=== PATIENT | female | born 2000 | race Caucasian/White ===

== ENCOUNTER 2019-09-17 03:44 | Emergency (ER) | payer OTHER ==
[~2019-09-17] VITALS: Ht 154.9 cm; Wt 45.6 kg
--- NOTE | 2019-09-17 04:05 | ED Integumentary General ---
General Stated Complaint: NAUSEA,POSS ABSCESS ON RT SIDE OF CHIN,POSS FEVER Source: patient, other Exam Limitations: no limitations History of Present Illness Date Seen by Provider: Sep 17, 2019 Time Seen by Provider: 03:45 Initial Comments Patient presents to ER by private conveyance with chief complaint last 3 days she's had a pimple on her right lower chin that she popped and is now becoming more swollen and involved and has a nodule under her mentum. She's felt some subjective chills but does not own a thermometer. She has some mild nausea but no vomiting. She is on oral control. She had a gram of Tylenol about an hour before coming in. Allergies and Home Medications Patient Home Medication List Home Medication List Reviewed: Yes Review of Systems Review of Systems Constitutional: chills; No fever EENTM: No ear discharge, No ear pain Respiratory: No cough, No short of breath Cardiovascular: No chest pain, No edema Gastrointestinal: No abdominal pain, No constipation; nausea; No vomiting Genitourinary: No discharge, No dysuria Musculoskeletal: No back pain, No joint pain Past Wbqcotw-Bspzuo-Htzfuk Hx Patient Social History Alcohol Use: Denies Use Recreational Drug Use: No Smoking Status: Never a Smoker Recent Foreign Travel: No Contact w/Someone Who Travel: No Physical Exam Vital Signs Capillary Refill : General Appearance: WD/WN, no apparent distress HEENT: PERRL/EOMI, pharynx normal, other (right mentum erythematous slightly indurated area of pointing but no fluctuance approximately 2 cm diameter erythema and 1 cm diameter induration) Neck: full range of motion, supple, lymphadenopathy (R) (solitary one half centimeter wide nodule consistent with lymph node submental) Cardiovascular: normal peripheral pulses, regular rate, rhythm Respiratory: no respiratory distress, no accessory muscle use Progress/Results/Core Measures Progress Progress Note : Time: 04:03 Progress Note Discussed risks, benefits and alternatives of an I&D versus just antibiotics and compresses and using the shared decision making model the patient elected to attempt conservative therapy this time. Departure Impression Primary Impression: Cellulitis and abscess of face Additional Impression: Lymphadenopathy, anterior cervical Disposition: 01 HOME, SELF-CARE Condition: Stable Departure-Patient Inst. Decision time for Depature: 04:04 Referrals: NO,LOCAL PHYSICIAN (PCP/Family) Primary Care Physician Patient Instructions: Skin Abscess Add. Discharge Instructions: Start the Bactrim one tablet twice a day with food. Warm compresses applied over the affected skin every 2-4 hours as needed. Keep the skin clean with regular soap and water. Avoid makeup. 1 g mupirocin applied in a thin layer over the affected skin twice daily for the next week or until it resolves. If you have a reaccumulation of purulence then you need to see a doctor to have it drained. For the next 2 weeks you should be on a backup form of control. If you have nausea take one tablet of Zofran every 6 hours under the tongue as needed. Tylenol 1000 mg every 8 hours as needed for pain. Ibuprofen 800 mg every 8 hours as needed for pain. Scripts Mupirocin Calcium (Mupirocin) 15 Gm Cream..g. 1 GM TP BID for 7 Days, #1 TUBE 0 Refills Prov: ANTONY PERALTA 09/17/19 Sulfamethoxazole/Trimethoprim (Bactrim Ds Tablet) 1 Each Tablet 1 EACH PO BID for 7 Days, #14 TAB 0 Refills Prov: ANTONY PERALTA 09/17/19 Ondansetron (Ondansetron Odt) 4 Mg Tab.rapdis 4 MG PO Q6H PRN for NAUSEA/VOMITING, #8 TAB 0 Refills Prov: ANTONY PERALTA 09/17/19 ANTONY PERALTA Sep 17, 2019 04:05 POS
[2019-09-17] MEDS ORDERED: MUPI15CR11 TP (04:06)
[2019-09-17] MEDS ORDERED: SULF1TAB35 PO (04:06)
[2019-09-17] MEDS ORDERED: ONDA4TAB11 PO (04:06)
== END 2019-09-17 04:14 | disposition home or self-care (01) ==
LOC: ER 03:50
DX: L03.211 Cellulitis of face (principal); L02.01 Cutaneous abscess of face; R59.0 Localized enlarged lymph nodes

== ENCOUNTER 2022-11-18 03:14 | Emergency (ER) | payer BC, OTHER ==
[~2022-11-18] VITALS: Ht 155 cm; Wt 45.6 kg
[~2022-11-18 03:14] MED LIST: MUPI15CR11 TP; ONDA4TAB11 PO; SULF1TAB38 PO
[2022-11-18 03:17] VITALS: BP 133/94
[2022-11-18] MEDS ORDERED: TETANUS,DIPTH,PERTUSS P/F (BOOSTRIX) 0.5 ML VIAL IM ONE (03:30)
[2022-11-18] MEDS ORDERED: RX-GENTAMICIN 0.3% OP OINT 3.5 GM TUBE OP STA (03:32)
[2022-11-18] MEDS ORDERED: AMOX1TAB12 PO (03:39)
--- NOTE | 2022-11-18 03:39 | ED EENT ---
History of Present Illness General Chief Complaint: Bite-Animal/Human/Insect Stated Complaint: DOG BITE Source: patient History of Present Illness Date Seen by Provider: Nov 18, 2022 Time Seen by Provider: 03:22 Initial Comments PT ARRIVES VIA POV FROM HOME WITH BOYFRIEND PT STATES THAT SHE WAS AWAKE AND LAYING IN BED, WITH HER FULL GROWN DOBERMAN PINSCHER ON THE BED. SHE STATES THAT SHE REACHED OVER AND WAS TRYING TO HUG THE DOG AND THE DOG BIT HER ON HER LEFT EYELID. SHE STATES THAT THE DOG IS 7 Y.O. AND SHE HAS HAD HIM FOR 6 YEARS. DOG WEIGHS ABOUT 85 LBS, AND HAS HIP AND KNEE DYSPLASIA AND HAS HAD HIP SURGERY AND IS IN ALOT OF PAIN, AND THE VET TOLD HER THAT HE WILL NEED TO BE PUT DOWN SOON. THE DOG IS UP TO DATE ON ALL ROUTINE VACCINATIONS. THE DOG HAS NEVER BITTEN HER OR ANYONE ELSE BEFORE. THE DOG HAS BEEN ACTING FINE ALL NIGHT. SHE HAS SMALL SUPERFICIAL LACERATION TO HER LEFT UPPER EYELID. NO INJURY TO THE EYEBALL ITSELF, AND NO PROBLEMS WITH HER VISION. NO OTHER INJURIES ANYWHERE PT HAS BEEN DRINKING ALCOHOL TONIGHT. PT STATES IT HAS BEEN OVER 5 YEARS SINCE HER LAST TETANUS VACCINATION NO CHRONIC ILLNESSES. PCP: PT IS/HAS BEEN A [employer] STUDENT, JUST GRADUATED. SHE IS FROM [place], AND WILL BE MOVING TO [place] SOON. Allergies and Home Medications Allergies Coded Allergies: No Known Drug Allergies (Unverified , 11/18/22) Patient Home Medication List Home Medication List Reviewed: Yes Amoxicillin/Potassium Clav (Amox Tr-K Clv 875-125 mg Tab) 875 Mg-125 Mg Tablet, 1 EACH PO BID Prescribed by: CARRI MEEKS on 11/18/22 0339 Mupirocin Calcium (Mupirocin) 15 Gm Cream..g., 1 GM TP BID Prescribed by: ANTONY PERALTA on 09/17/19405 Ondansetron (Ondansetron Odt) 4 Mg Tab.rapdis, 4 MG PO Q6H PRN for NAUSEA/VOMITING Prescribed by: ANTONY PERALTA on 09/17/19405 Sulfamethoxazole/Trimethoprim (Bactrim Ds Tablet) 1 Each Tablet, 1 EACH PO BID Prescribed by: ANTONY PERALTA on 09/17/19405 Review of Systems Review of Systems Constitutional: no symptoms reported Eyes: See HPI Ears: No Symptoms Reported Nose: no symptoms reported Mouth: no symptoms reported Throat: no symptoms reported Respiratory: no symptoms reported Cardiovascular: no symptoms reported Gastrointestinal: no symptoms reported Musculoskeletal: no symptoms reported Skin: see HPI Neurological: No Symptoms Reported Hematologic/Lymphatic: No Symptoms Reported Immunological/Allergic: no symptoms reported Past Qzzdlub-Cmyilz-Yixvgs Hx Patient Social History Tobacco Use?: No Substance use?: No Alcohol Use?: Yes Alcohol Frequency: Once in a while Immunizations Up To Date Tetanus Booster (TDap): More than 5yrs Past Medical History Surgeries: No Respiratory: No Cardiac: No Neurological: No Genitourinary: No Gastrointestinal: No Musculoskeletal: No Endocrine: No HEENT: No Cancer: No Psychosocial: No Integumentary: No Blood Disorders: No Physical Exam Vital Signs Vital Signs - First Documented 11/18/22 03:17 Temp 36.7 Pulse 132 Resp 20 B/P (MAP) 133/94 (107) Pulse Ox 99 O2 Delivery Room Air Height, Weight, BMI Height: '" Weight: lbs. oz. kg; 19.00 BMI Method: General Appearance: WD/WN, no apparent distress, other (STRONG ODOR OF ETOH. SPEECH IS CLEAR, GAIT IS STEADY, PT IS SOMEWHAT ANXIOUS AND TEARFUL. ) Eyes: left eye other (LEFT UPPER EYELID WITH 1 CM SUPERFICIAL, IRREGULAR LACERATION. THERE IS NO GAPING AND NO BLEEDING AT THIS TIME. LACERATION IS NOT THROUGH AND THROUGH. IT DOES EXTEND TO LASH/LID LINE, BUT DOES NOT TRANSECT IT. THERE IS NO INJURY TO THE GLOVE. KAREN, EOMI. THERE IS NO BRUISING OR SWELLING. 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, no motor/sensory deficits, alert, oriented x 3 Skin: normal color, warm/dry, other ( ABOVE) Progress/Results/Core Measures Results/Orders My Orders Orders - CARRI MEEKS DO Dipht,Pertuss(Acell),Tet Adult (Boostrix (11/18/22 03:30) Amoxicillin/Clavulanate Tablet (Augmenti (11/18/22 08:00) Rx-Gentamicin Ophth Oint (Rx-Gentamicin (11/18/22 03:32) Rx-Amoxicillin/Clav Tab (Rx-Augmentin Ta (11/18/22 03:44) Amoxicillin/Clavulanate Tablet (Augmenti (11/18/22 03:45) Amoxicillin/Clavulanate Tablet (Augmenti (11/18/22 03:45) Rx-Amoxicillin/Clav Tab (Rx-Augmentin Ta (11/18/22 03:45) Rx-Tobramycin Ophth Oint (Rx-Tobrex Opht (11/18/22 03:45) Medications Given in ED Current Medications Medications Dose Ordered Sig/Monique Route Start Time Stop Time Status Last Admin Dose Admin Diphtheria/ Tetanus/Acell Pertussis 0.5 ml ONCE ONCE IM 11/18/22 03:30 11/18/22 03:31 DC 11/18/22 03:28 0.5 ML Vital Signs/I&O 11/18/22 03:17 Temp 36.7 Pulse 132 Resp 20 B/P (MAP) 133/94 (107) Pulse Ox 99 O2 Delivery Room Air Progress Progress Note : Progress Note DPT VACCINATION GIVEN NO REPAIR REQUIRED, WOUND IS SMALL, SUPERFICIAL, NOT GAPING OR BLEEDING, IS NOT A THROUGH AND THROUGH LACERATION AND DOES NOT BISECT THE LID MARGIN, AND THERE IS NO INJURY TO THE GLOBE WILL TREAT WITH TOPICAL AND ORAL ANTIBIOTICS ANTICIPATED COURSE, NEED FOR FOLLOW UP AND RETURN PRECAUTIONS DISCUSSED WITH PT. PT'S AUNT IS AN N.P. AT [employer] AND HERE IN ER, AND PT STATES SHE CAN HAVE AUNT WATCH IT ALSO FOR SIGNS OF INFECTION, ETC. Departure Impression Primary Impression: DOG BITE TO LEFT UPPER EYELID Additional Impression: Xhlrnppopw-rmiuxjjdd-yqidmkr (DPT) vaccination administered at current visit Disposition: HOME, SELF-CARE Condition: Stable Departure-Patient Inst. Decision time for Depature: 03:37 Referrals: MATTHEW MCKEON MD Patient Instructions: Animal Bites (DC), Diphtheria and Tetanus Toxoids, and Acellular Pertussis Vaccine Add. Discharge Instructions: CLEAN WOUND GENTLY WITH SOAP AND WATER ON A Q-TIP APPLY GENTAMICIN OPHTHALMIC OINTMENT TO THE WOUND EVERY 4 HOURS ICE TO AREA AT 20 MINUTE INTERVALS TYLENOL AND MOTRIN NEEDED FOR PAIN FOLLOW UP WITH [employer] [facility] IF NEEDED, RETURN TO ER IF ANY OF YOUR SYMPTOMS WORSEN All discharge instructions reviewed with patient and/or family. Voiced understanding. Scripts Amoxicillin/Potassium Clav (Amox Tr-K Clv 875-125 mg Tab) 875 Mg-125 Mg Tablet 1 EACH PO BID for 15 Days, #30 TAB Prov: CARRI MEEKS DO 11/18/22 CARRI MEEKS DO Nov 18, 2022 03:39
[2022-11-18] MEDS ORDERED: RX-AMOX/CLAV. (AUGMENTIN) 500MG TAB PPK#2 PO STA (03:44)
[2022-11-18] MEDS ORDERED: AUGMENTIN 875 MG TAB (AMOXICILLIN/CLAVULANATE) PO SCH ×2 (03:45→08:00)
[2022-11-18] MEDS ORDERED: RX-TOBRAMYCIN (TOBREX) 0.3% OP OINT 3.5 GM TUBE ONE (03:45)
[2022-11-18] MEDS ORDERED: AUGMENTIN 875 MG TAB (AMOXICILLIN/CLAVULANATE) ONE (03:45)
[2022-11-18] MEDS ORDERED: RX-AMOX/CLAV. (AUGMENTIN) 500MG TAB PPK#2 PO ONE (03:45)
== END 2022-11-18 03:52 | disposition home or self-care (01) ==
LOC: EDUNIT# 03:14 → ER 03:16
DX: S01.152A Open bite of left eyelid and periocular area, initial encounter (principal); Z23 Encounter for immunization; W54.0XXA Bitten by dog, initial encounter
CPT/HCPCS: 90715; 99284